=== PATIENT | male | born 1975 | race Caucasian/White ===

== ENCOUNTER 2023-03-03 08:14 | Day surgery (SDC) | payer OTHER ==
[2023-02-27 11:54] VITALS: BMI 25.1
[2023-03-03 08:33] VITALS: RESP 18
[2023-03-03 10:18] VITALS: TEMP 97.8
[2023-03-03 10:32] VITALS: BP 105/74; PULSE 64
== END 2023-03-03 10:37 | disposition home or self-care (01) ==
LOC: FASU-ENDO 08:14
PROVIDERS: ATTEND Internal Medicine Gastroenterology
PROC: 0DJD8ZZ Inspection of Lower Intestinal Tract, Via Natural or Artificial Opening Endoscopic (ICD-10-PCS; 2023-03-03)
PROC: 0DBK8ZX Excision of Ascending Colon, Via Natural or Artificial Opening Endoscopic, Diagnostic (ICD-10-PCS; principal; 2023-03-03 09:40)
DX: Z12.11 Encounter for screening for malignant neoplasm of colon (principal); D12.2 Benign neoplasm of ascending colon
CPT/HCPCS: 88305-TC